=== PATIENT | male | born 1970 | race Caucasian/White ===

== ENCOUNTER 2018-01-02 17:43 | Emergency (ER) | payer OTHER ==
[~2018-01-02] VITALS: Ht 172.7 cm; Wt 81.6 kg
[~2018-01-02 17:43] MED LIST: AMOX-358 PO; CEPH500C PO; CYCL10TA9 PO; HYDR1TAB66 PO; LOSA1TAB3 PO; NAPR550T PO; OMEP20CA6 PO; SULF1TAB38 PO
[2018-01-02] MEDS ORDERED: cloNIDine 0.2 MG (CATAPRES) TAB PO ONE (18:30)
[2018-01-02] MEDS: KETOROLAC 60 MG/2 ML VIAL IM ONE (18:35)
[2018-01-02] MEDS: PROCHLORPERAZINE 10 MG/2ML INJ (COMPAZINE) IM ONE (18:35)
[2018-01-02] MEDS: diphenhydrAMINE 50 MG/ML INJ (BENADRYL) IM ONE (18:36)
--- NOTE | 2018-01-02 18:55 | ED Headache ---
General Chief Complaint: Head/Cervical Problems Stated Complaint: SINUS INFECTION Nursing Triage Note: AMBULATORY TO ED WITH C/O ALLERGIES, NOSE STUFFINESS AND RUNNY AT TIMES AND HEADACHE THAT CANNOT BE CONTROLLED WITH GENERIC NASAL SPRAY, ALEVE, GENERIC CLARITIN AND TYLENOL PRN. Nursing Sepsis Screen: No Definite Risk Source: patient Exam Limitations: no limitations History of Present Illness Date Seen by Provider: Jan 02, 2018 Time Seen by Provider: 17:47 Initial Comments Patient is a 47-year-old male who presents to the emergency room with complaints of a sinus infection and a migraine. He reports that he is had runny nose, headache, facial tenderness, for 2 weeks that has not improved with over- the-counter medication attempts. Timing/Duration: other (2 weeks) Severity/Quality: pressure Location: frontal Prior Headaches/Recent Trauma: no recent headache/trauma Modifying Factors: improves with cold therapy (minimal iprovment) Associated Symptoms: facial pain, nasal congestion, nasal drainage; No stiff neck Allergies and Home Medications Allergies Coded Allergies: No Known Drug Allergies (Unverified , 02/25/11) Home Medications Amoxicillin/Potassium Clav 1 Each Tablet, 1 EACH PO BID Prescribed by: KRISTY YANG on 08/04/152355 Amoxicillin/Potassium Clav 1 Each Tablet, 1 EACH PO BID Prescribed by: SNOW MALDONADO on 01/02/181914 Cephalexin Monohydrate 500 Mg Capsule, 500 MG PO QID, (Reported) Cyclobenzaprine Hcl 10 Mg Tablet, 1 EACH PO TID PRN Prescribed by: LAUREN PRIETO on 02/25/112121 Hydrocodone Bit/Acetaminophen 1 Each Tablet, 5-500 MG PO NEEDED, (Reported) Losartan/Hydrochlorothiazide 1 Tab Tablet, 1 TAB PO DAILY, (Reported) Naproxen Sodium 550 Mg Tablet, 550 MG PO BID PRN Prescribed by: LAUREN PRIETO on 02/25/112121 Omeprazole 20 Mg Capsule.dr, 1 TAB PO DAILY, (Reported) Prednisone 20 Mg Tab, 40 MG PO DAILY Prescribed by: SNOW MALDONADO on 01/02/181914 Trimethoprim/Sulfamethoxazole 1 Ea Tablet, 1 TAB PO BID, (Reported) Patient Home Medication List Home Medication List Reviewed: Yes Review of Systems Review of Systems Constitutional: see HPI, chills, fever Ears, Nose, Mouth, Throat: nose pain, nose discharge All Other Systems Reviewed Negative Unless Noted: Yes Past Xdnkdpq-Nytqec-Tnojje Hx Past Med/Social Hx: Reviewed Nursing Past Med/Soc Hx Patient Social History Alcohol Use: Denies Use Recreational Drug Use: Yes Smoking Status: Current Everyday Smoker Type Used: Cigarettes Recent Foreign Travel: No Contact w/Someone Who Travel: No Recent Infectious Disease Expo: No Recent Hopitalizations: No Immunizations Up To Date Tetanus Booster (TDap): Less than 5yrs Seasonal Allergies Seasonal Allergies: Yes Past Medical History Surgeries: Yes Orthopedic Respiratory: No Cardiac: Yes Hypertension Neurological: No Reproductive Disorders: No Gastrointestinal: No Gastroesophageal Reflux Musculoskeletal: No Endocrine: No HEENT: No Cancer: No Psychosocial: No Integumentary: No Blood Disorders: No Family Medical History Reviewed Nursing Family Hx Physical Exam Vital Signs Vital Signs - First Documented 01/02/18 01/02/18 17:46 19:32 Temp 97.9 Pulse 81 Resp 19 B/P (MAP) 163/114 (130) Pulse Ox 100 O2 Delivery Room Air Capillary Refill : Less Than 3 Seconds Height, Weight, BMI Height: 5'8.00" Weight: 180lbs. oz. 81.908998az; BMI Method:Stated General Appearance: WD/WN, no apparent distress HEENT: PERRL/EOMI, TMs normal, pharynx normal, other Neck: non-tender, full range of motion, supple, normal inspection Cardiovascular: normal peripheral pulses, regular rate, rhythm, no edema, no gallop, no JVD, no murmur Respiratory: chest non-tender, lungs clear, normal breath sounds, no respiratory distress, no accessory muscle use Skin: normal color, warm/dry Lymphatic: no adenopathy Progress/Results/Core Measures Results/Orders My Orders Orders - SNOW MALDONADO Clonidine Tablet (Catapres Tablet) (01/02/18 18:30) Ketorolac Injection (Toradol Injection) (01/02/18 18:30) Diphenhydramine Injection (Benadryl Inje (01/02/18 18:30) Prochlorperazine Injection (Compazine In (01/02/18 18:30) Im/Sub-Q Injection Non-Ab Ed (01/02/18 ) Medications Given in ED Vital Signs/I&O 01/02/18 01/02/18 17:46 19:32 Temp 97.9 97.9 Pulse 81 81 Resp 19 19 B/P (MAP) 163/114 (130) 153/111 (130) Pulse Ox 100 O2 Delivery Room Air Blood Pressure Mean: 130 Progress Progress Note : Time: 19:00 Progress Note I have seen and evaluated the patient. He has relief after medication administration and rates pain 2/10. His blood pressure has improved and he was instructed to take his evening dose of blood pressure medication. I will be treating with abx and steroids due to no improvement with otc therapeutic treatment. He agress with plan of care, plans for discharge and return precautions were given. Departure Impression Primary Impression: Headache Additional Impressions: Sinusitis, acute Sinus infection Disposition: HOME, SELF-CARE Condition: Stable/Unchanged Departure-Patient Inst. Decision time for Depature: 19:11 Referrals: NO,LOCAL PHYSICIAN (PCP/Family) Primary Care Physician Patient Instructions: Sinus Headache (DC), Sinusitis in Adults Add. Discharge Instructions: Take medications as directed. Continue eorx-vrh-navqwhl treatments as you've been doing. Follow up with your primary care provider within 1 week for recheck. Return back to the emergency room for any worsening symptoms or concerns as needed. All discharge instructions reviewed with patient and/or family. Voiced understanding. Scripts Prednisone (Prednisone) 20 Mg Tab 40 MG PO DAILY for 4 Days, #8 TAB Prov: SNOW MALDONADO 01/02/18 Amoxicillin/Potassium Clav (Augmentin 875-125 Tablet) 1 Each Tablet 1 EACH PO BID for 7 Days, #14 TAB Prov: SNOW MALDONADO 01/02/18 SNOW MALDONADO Jan 02, 2018 18:55
[2018-01-02] MEDS ORDERED: PRD20T PO (19:15)
[2018-01-02] MEDS ORDERED: AMOX-358 PO (19:15)
--- OUTSIDE RECORDS SUMMARY | 2018-01-02 19:20 | XMS REPORT | Continuity of Care Document ---
Demographics Preferred Language Unknown Marital Status Unknown Sabianism Affiliation Unknown Race Unknown Ethnic Group Unknown Author Author [facility] Organization [facility] Address Unknown Phone Unavailable Allergies Active Description Code Type Severity Reaction Onset Reported/Identified Relationship to Patient Clinical Status Yes No Known Drug Allergies [id number] Drug Allergy Unknown N/A 02/25/2011 Medications There is no data. Problems Date Dx Coded Attending Type Code Diagnosis Diagnosed By 08/05/2015 Ot S61.451A OPEN BITE OF RIGHT HAND, INITIAL ENCOUNT 08/05/2015 Ot W54.0XXA BITTEN BY DOG, INITIAL ENCOUNTER 08/05/[address] IN [facility] NON-[facility] 08/05/2015 Ot Y99.8 OTHER EXTERNAL CAUSE STATUS 08/05/2015 Ot Z86.14 PERSONAL HISTORY OF [place] RESIS ST 08/10/2015 Ot S61.451A 08/10/2015 Ot W54.0XXA 08/10/2015 Ot Y92.009 08/10/2015 Ot Y99.8 08/10/2015 Ot Z86.14 Procedures There is no data. Results There is no data. Encounters ACCT No. Visit Date/Time Discharge Status Pt. Type Provider Facility Loc./Unit Complaint [id number] 08/04/2015 23:10:00 Document Registration
[2018-01-02 19:32] VITALS: BP 153/111
== END 2018-01-02 19:33 | disposition home or self-care (01) ==
LOC: EDUNIT# 17:43 → ER 17:44
DX: J01.90 Acute sinusitis, unspecified (principal); J32.9 Chronic sinusitis, unspecified; R51 Headache; I10 Essential (primary) hypertension; K21.9 Gastro-esophageal reflux disease without esophagitis; F17.210 Nicotine dependence, cigarettes, uncomplicated
CPT/HCPCS: 96372; 99284